=== PATIENT | female | born 1950 | race Caucasian/White ===

== ENCOUNTER → 2019-03-28 | Day surgery (SDC) | payer MEDICARE ==
[2019-03-22 13:00] LABS: BASOPHILS # (AUTO) 0.1 (0.0-0.1); BASOPHILS % 1.3 % (0.0-1.0); EOSINOPHILS # (AUTO) 0.1 (0.0-0.4); EOSINOPHILS % 1.4 % (0.0-6.0); HEMATOCRIT 44.5 % (34.2-44.1); HEMOGLOBIN 14.6 g/dL (12.0-16.0); LYMPHOCYTES # (AUTO) 2.6 (1.0-3.2); LYMPHOCYTES % 33.5 % (18.0-39.1); MEAN CORPUSCULAR HEMOGLOBIN 29.4 pg (28-32); MEAN CORPUSCULAR HGB CONC 32.8 g/dL (31-35); MEAN CORPUSCULAR VOLUME 89.5 fL (81-99); MONOCYTES # (AUTO) 0.6 (0.2-0.8); MONOCYTES % 7.8 % (4.4-11.3); NEUTROPHILS # (AUTO) 4.4 (2.1-6.9); NEUTROPHILS % 55.7 % (38.7-80.0); PLATELET COUNT 274 x10e3/uL (140-360); RED BLOOD COUNT 4.97 x10e6/uL (3.6-5.1)
[~2019-03-28] MED LIST: ASPIR 8181 MG PO; FIBERCON625 MG PO; FISH OIL 1,0001 EAC2 PO; FISH OIL500 M1; KETAMINE HCL INJ 50 MG/ML 10 ML VIAL ONE; MIDAZOLAM HCL 2 MG/2 ML VIAL ONE; MULTIVITAMINS1 EAC7 PO; PRESERVISION T1 EACH PO; PROPOFOL IV EMULSION 10 MG/ML 50 ML VIAL ONE; VIT D PO
--- OUTSIDE RECORDS SUMMARY | 2019-03-28 07:26 | XMS REPORT ---
Author Author [facility] Address Unknown Phone Unavailable Care Team Providers Care Profiler Hand Name Role Phone DAMON BELTRAN Unavailable Unavailable Problems This patient has no known problems. Allergies, Adverse Reactions, Alerts This patient has no known allergies or adverse reactions. Medications This patient has no known medications. Results Test Description Test Time Test Comments Text Results Atomic Results Result Comments SCR MAMM BILATERAL LORI CAD DIGITAL 2018-10-24 13:46:33 - SCR MAMM BILATERAL LORI CAD DIGITALBILATERAL DIGITAL SCREENING MAMMOGRAM 3D/2D WITH CAD: 10/24/2018CLINICAL: Asymptomatic. Digital breast tomosynthesis was performed in addition to routine CC and MLO views. Current mammographic images were evaluated by either a [employer] M-Vu or a [employer] ImageChecker CAD (computer aided detection system). Comparison is made to exams dated 08/13/2016 mammogram, 08/29/2014 mammogram, and 04/12/2013 mammogram - [facility]. The tissue of both breasts is heterogeneously dense. This may lower the sensitivity of mammography. There are benign vascular calcifications in both breasts. No suspicious mass, architectural distortion, malignant type calcification, or lymph node abnormality detected. Breast architecture is stable compared to prior exams.IMPRESSION: BENIGNThere is no mammographic evidence of malignancy. Resume annual screening mammography in one year. Vini Aguirre MD hs/penrad:10/24/2018 13:46:33 Test Carrier: Kristi VIEIRA, [facility] sent: BIRADS 1-2 Normal Mammogram BI-RADS: [address] ABDOMEN/PELVIS [facility] [address] [place], [place] [address] Patient Name: ELIJAH BHATT MR #: [id number] : 1950 Age/Sex: 67/F Req #: [id number] [facility] Physician: Ordered by: DAMON BELTRAN MD Report #: [id number] Location: CT Room/Bed: Procedure: [id number] CT/CT ABDOMEN/PELVIS W Exam Date: 09/28/17 Exam Time: 1054 REPORT STATUS: Signed PROCEDURE: CT ABDOMEN AND PELVIS WITH CONTRAST TECHNIQUE: The abdomen and pelvis were scanned utilizing a multidetector helical scanner from the diaphragm to the lesser trochanter after the IV administration of 100cc of Isovue 370 and the oral administration of 900 cc of Gastroview/water Coronal and sagittal multiplanar reformations were obtained. DLP: 297 mGy-cm COMPARISON: None. INDICATIONS: LOWER ABDOMEN PAIN FINDINGS: LOWER THORAX: Normal. HEPATOBILIARY: Hypoattenuation of the liver relative to the spleen, compatible with hepatic steatosis. Liver is within normal size limits measuring approximately 14.9 cm in length in the mid right clavicular line. Fluid attenuating 2.5 cm cyst in segment 4B adjacent to the falciform ligament (series 2 image 19). A hepatic segment 2/3 0.7 cm hypodensity is too small to characterize but probably a cyst (series 2 image 18). No suspicious focal hepatic lesions. No biliary ductal dilatation. SPLEEN: No splenomegaly. PANCREAS: No focal masses or ductal dilatation. ADRENALS: No adrenal nodules. KIDNEYS/URETERS: No hydronephrosis, stones, or solid mass lesions. PELVIC ORGANS/BLADDER: Oval hyperattenuating 1.4 cm lesion (series 2 image 67) near the left uterine fundus measures approximately 167 HU. PERITONEUM / RETROPERITONEUM: No free air or fluid. LYMPH NODES: No lymphadenopathy. VESSELS: Unremarkable. No abdominal aortic aneurysm. GI TRACT: No distention or wall thickening. Sigmoid colonic diverticula without evidence of diverticulitis. Appendix is normal. Moderate amount of stool in the colon. BONES AND SOFT TISSUES: Soft tissues are unremarkable. No hernia is identified. Mild degenerative changes of the spine. Minimal grade 1 anterolisthesis of L4 and L5 without spondylolysis. IMPRESSION: 1. No acute abnormalities in the abdomen and pelvis. 2. Hepatic steatosis. 3. Diverticulosis. 4. Oval 1.4 cm lesion in the uterus may represent a hyperattenuating fibroid, enhancing polyp, or a vascular structure. This is can be better evaluated with pelvic ultrasound. by: Gary Weeks M.D. on 09/28/2017 at 11:40 Electronically approved by: Gary Weeks M.D. on 09/28/2017 at 11:40 Dictated By: GARY WEEKS MD [id number] Transcribed By: VIRGILIO on 09/28/17 1140 COPY TO: DAMON BELTRAN MD
--- OUTSIDE RECORDS SUMMARY | 2019-03-28 07:26 | XMS REPORT | Clinical Summary ---
Author Author [facility] Address Unknown Phone Unavailable Care Team Providers Care Computer Game Programmer Name Role Phone Austin Medrano MD PCP Allergies No Known Allergies Medications End Date Status Medication Sig Dispensed Refills Start Date Active bromfenac (PROLENSA) 0.07 Apply 1 drop 0 % drops to eye daily. Active CALCIUM CARBONATE Take 1 0 (CALTRATE 600 ORAL) capsule by mouth daily. Active DOCOSAHEXANOIC ACID/EPA Take 1 0 (FISH OIL ORAL) capsule by mouth daily. Active metroNIDAZOLE (FLAGYL) Take 500 mg 0 500 MG tablet by mouth 3 (three) times a day. Active ciprofloxacin (CIPRO) 500 Take 500 mg 0 MG tablet by mouth 2 (two) times a day. Active PROAIR HFA 90 INL 2 PUFFS 3 mcg/actuation inhaler PO Q 6 H PRF 7 WHEEZING Active VIT Take by 0 C/E/ZN/COPPR/LUTEIN/ZEAXA mouth. N (PRESERVISION AREDS 2 ORAL) Active PROLENSA 0.07 % drops 1 drop. DAILY 0 6 Active ciprofloxacin (CIPRO) 500 1 tablet. 0 MG tablet DAILY 6 Active metroNIDAZOLE (FLAGYL) 1 tablet. 0 500 MG tablet DAILY 6 Active ondansetron ODT DISSOLVE 1 T 0 (ZOFRAN-ODT) 4 MG ON TONGUE Q 6 6 disintegrating tablet H PRN NV Active propylene glycol (SYSTANE Apply 1 drop 0 BALANCE OPHT) to eye as needed. 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 L ast Assessment & Plan: MRx updated s/p YAG OU. History of radial keratotomy 12/22/2017 Overview: 8-cut OU, single AK OS L ast Assessment & Plan: 8-cut OU, single AK OS At low risk for open-angle glaucoma in both eyes 12/22/2017 Last Assessment & Plan: Based on C/D increase. Tm 20. Pachy 585/587 IOP 17/18 Pachy 585/587 OCT 82/89 (better than 2016 80/72). HVF non-specific (-2.3/-3.88, last one 2015 -1.94/-2.79). Follow annually for now with testing. Dry eye syndrome 10/01/2016 Primary open angle glaucoma of both eyes, indeterminate stage 07/09/2016 Overview: Pachy 578/574. L ast Assessment & Plan: Pachy 578/574. IOP WNL (18-17, was 12-13 last visit, fluctations more likely due to RK). Testing looks good OCT g 82 OD and 86 OS. Would like to continue 3 month visits. Follow up in 3 months IOP and 6 months for CE and testing. History of radial keratotomy 07/09/2016 Pseudophakia 07/09/2016 Last Assessment & Plan: Almost done with Prolens. Stop after finshied. 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); Trichiasis of left upper eyelid 04/03/2018 Office Visit Ophthalmology after 03/27/2018 Family History Medical History Relation Name Comments Cataracts Other unspecified family Glaucoma Other unspecified family Other Other unspecified walker/wheelchair use family Glaucoma Paternal Grandfather Relation Name Status Comments Other unspecified family Paternal Grandfather Social History Date Tobacco Use Types Packs/Day Years Used Unknown If Ever Smoked Comments: no Alcohol Use Drinks/Week oz/Week Comments No Sex Assigned at Date Recorded Not on file Industry Job Start Date Occupation Not on file Not on file Not on file Travel End Travel History Travel Start No recent travel history available. Last Filed Vital Signs Not on file Plan of Treatment Health Maintenance Due Date Last Done Comments BREAST CANCER SCREENING 2000 COLON CANCER SCREENING 2000 SHINGLES VACCINES (#1) 2000 65+ PNEUMOCOCCAL VACCINE 2015 (1 of 2 - PCV13) PNEUMOCOCCAL 2015 POLYSACCHARIDE VACCINE AGE 65 AND OVER INFLUENZA VACCINE 06/28/2019 Results Not on fileafter 03/27/2018 Insurance Payer Benefit Subscriber ID Type Phone Address Plan / Group MEDICARE MEDICARE xxxxxxxxxx Medicare [place] B AARP AARP xxxxxxxxxx Commercial SUPPLEMENT MEDICARE MEDICARE xxxxxxxxxx Medicare [place] AARP AARP xxxxxxxxxxx Commercial SUPPLEMENT Advance Directives Patient has advance care planning documents on file. For more information, dionte mendes contact: Nabor Soni [address] [facility] [place] [address]
[2019-03-28 09:30] VITALS: BP 132/77
--- NOTE | 2019-03-28 15:09 | Operative Report ---
DATE OF PROCEDURE: 03/28/2019 SURGEON: Bandar Medrano MD PROCEDURE: Esophagogastroduodenoscopy with biopsies and colonoscopy with biopsies. INDICATIONS FOR EGD: Dyspepsia. INDICATIONS FOR COLONOSCOPY: Personal history of colon polyps, lower abdominal pain, history of bright red blood per rectum. MEDICATION: The patient was done under MAC, please see anesthesiologist's note. PROCEDURE IN DETAIL: With the patient in left lateral decubitus position, a flexible fiberoptic Olympus gastroscope was introduced into the esophagus under direct visualization without any difficulty. There was some patchy erythema noted in distal esophagus. The scope was then advanced with ease into the stomach and mucosa overlying the antrum and the body revealed some patchy intense erythema and moderate edema and biopsies were obtained and sent to stain for H pylori. Several minute hyperplastic-appearing polyps were noted in the body of the stomach and some were partially excised with a cold biopsy forceps. The pylorus was of normal contour and shape, it was intubated with ease and the scope was advanced all the way to the second portion of the duodenum. The scope was then withdrawn slowly and biopsies were obtained from the proximal second portion and the duodenal bulb to rule out sprue. The scope was then withdrawn back into the stomach and retroflexed and mucosa overlying the fundus and cardia appeared to be within normal limits. The scope was then straightened out, it was subsequently withdrawn. The patient tolerated procedure well. IMPRESSION: 1. Distal esophagitis. 2. Gastritis, biopsied, biopsies sent to stain for H pylori. 3. Gastric polyps, hyperplastic appearing, some partially excised with the cold biopsy forceps. 4. Rule out sprue. PLAN: Follow up histology. Initiate Protonix 40 mg one p.o. q.a.m. a.c. PROCEDURE IN DETAIL: The patient was then turned around. After adequate lubrication of the anal canal, a flexible fiberoptic Olympus colonoscope was inserted into the rectum with ease and advanced all the way to the cecum. It was then withdrawn slowly and mucosa overlying the cecum appeared to be within normal limits. Scattered diverticular disease was noted pretty much throughout. The mucosa overlying the distal descending, sigmoid, and rectum revealed some patchy mild inflammatory changes and random biopsies were obtained. The scope was then retroflexed into the distal rectum and small internal hemorrhoids were noted, none of which was actively bleeding. The scope was then straightened out, it was subsequently withdrawn. The patient tolerated procedure well. IMPRESSION: 1. Mild patchy left-sided colitis. 2. Diverticulosis. 3. Internal hemorrhoids, none actively bleeding. PLAN: Followup histology. Initiate VSL#3 one p.o. daily. The patient might benefit from a followup colonoscopy in 3 to 5 years. Bandar Medrano MD [facility] /[id number] cc: Harsh Medrano MD
== END | disposition home or self-care (01) ==
LOC: OR 06:49
PROVIDERS: ATTEND Internal Medicine Gastroenterology
DX: K29.70 Gastritis, unspecified, without bleeding (principal); K31.7 Polyp of stomach and duodenum; K51.50 Left sided colitis without complications; K20.8 Other esophagitis; K57.30 Diverticulosis of large intestine without perforation or abscess without bleeding; K64.8 Other hemorrhoids; K62.89 Other specified diseases of anus and rectum; Z88.6 Allergy status to analgesic agent; Z01.810 Encounter for preprocedural cardiovascular examination; Z01.812 Encounter for preprocedural laboratory examination; Z79.82 Long term (current) use of aspirin
CPT/HCPCS: 36415; 43239; 45380; 85025; 88305; 88312; 93005; J2250; J2704; 45378

== ENCOUNTER 2020-11-08 14:07 | Emergency (ER) | payer MEDICARE ==
[~2020-11-08] VITALS: Ht 160 cm; Wt 66.4 kg
[~2020-11-08 14:07] MED LIST changes: -KETAMINE HCL INJ 50 MG/ML 10 ML VIAL ONE; -MIDAZOLAM HCL 2 MG/2 ML VIAL ONE; -PROPOFOL IV EMULSION 10 MG/ML 50 ML VIAL ONE
[2020-11-08] MEDS ORDERED: DIPHTH/TETANUS/ACEL. PERTUSSIS 0.5 ML SYR IM ONE (16:45)
[2020-11-08] MEDS ORDERED: TETANUS/DIPHTHERIA TOX ADULT 0.5 ML SYR ONE (16:54)
[2020-11-08 17:20] VITALS: BP 143/76
== END 2020-11-08 16:57 | disposition home or self-care (01) ==
LOC: FSED 14:58
DX: R07.89 Other chest pain (principal); S80.01XA Contusion of right knee, initial encounter; S50.311A Abrasion of right elbow, initial encounter; S60.512A Abrasion of left hand, initial encounter; W01.0XXA Fall on same level from slipping, tripping and stumbling without subsequent striking against object, initial encounter; Y93.01 Activity, walking, marching and hiking; Y92.481 Parking lot as the place of occurrence of the external cause
CPT/HCPCS: 71046; 90471; 90714; 96372; 99283

== ENCOUNTER → 2022-02-18 | Outpatient (CLI) | payer MEDICARE | LOC: RAD 12:19 | DX: R05.3 Chronic cough (principal) | CPT/HCPCS: 71046 ==

== ENCOUNTER 2022-10-06 14:28 | Emergency (ER) | payer MEDICARE, OTHER ==
[~2022-10-06] VITALS: Ht 160 cm; Wt 67.1 kg
== END 2022-10-06 16:45 | disposition home or self-care (01) ==
LOC: FSED 14:43
DX: S90.32XA Contusion of left foot, initial encounter (principal); Y93.K1 Activity, walking an animal; Y93.89 Activity, other specified; Y92.488 Other paved roadways as the place of occurrence of the external cause; I10 Essential (primary) hypertension
CPT/HCPCS: 99282

== ENCOUNTER → 2022-12-09 | Outpatient (CLI) | payer MEDICARE ==
[~2022-12-09] MED LIST changes: +DIATRIZOATE MEGL/DIATRIZOA SOD 30 ML BTL PO ONE; +IOPAMIDOL 370 MG/ML 100 ML INFUS..BTL INJ ONE
== END ==
LOC: CT 16:05
DX: R10.30 Lower abdominal pain, unspecified (principal)
CPT/HCPCS: 74177; Q9963; Q9967

== ENCOUNTER → 2024-08-29 | Day surgery (SDC) | payer MEDICARE ==
[2024-08-27 11:36] LABS: BASOPHILS # (AUTO) 0.1 (0.0-0.1); BASOPHILS % 2.2 % (0.0-1.0); EOSINOPHILS # (AUTO) 0.1 (0.0-0.4); EOSINOPHILS % 1.8 % (0.0-6.0); HEMATOCRIT 43.5 % (34.2-44.1); HEMOGLOBIN 14.4 g/dL (12.0-16.0); LYMPHOCYTES # (AUTO) 2.5 (1.0-3.2); LYMPHOCYTES % 42.6 % (18.0-39.1); MEAN CORPUSCULAR HEMOGLOBIN 30.3 pg (28-32); MEAN CORPUSCULAR HGB CONC 33.1 g/dL (31-35); MEAN CORPUSCULAR VOLUME 91.4 fL (81-99); MONOCYTES # (AUTO) 0.5 (0.2-0.8); MONOCYTES % 8.1 % (4.4-11.3); NEUTROPHILS # (AUTO) 2.7 (2.1-6.9); PLATELET COUNT 264 x10e3/uL (140-360); RED BLOOD COUNT 4.76 x10e6/uL (3.6-5.1); RED CELL DISTRIBUTION WIDTH 13.9 % (11.7-14.4); WHITE BLOOD COUNT 5.96 x10e3/uL (4.8-10.8)
[~2024-08-29] MED LIST changes: +AMOX TR-K CLV1 EAC2 PO; -DIATRIZOATE MEGL/DIATRIZOA SOD 30 ML BTL PO ONE; +FENTANYL CITRATE/PF 100MCG/2 ML INJ ONE; +HYDROCODON-ACE1 EA11 PO; -IOPAMIDOL 370 MG/ML 100 ML INFUS..BTL INJ ONE; +LOPRESSOR25 MG PO; +MIRALAX17 GM PO; +ONDANSETRON ODT4 MG PO; +PROPOFOL IV EMULSION 50 ML IV ONE
[2024-08-29] MEDS: LACTATED RINGER'S 1,000 ML ONE (07:59)
[2024-08-29 11:39] VITALS: TEMP 97.7
[2024-08-29 12:10] VITALS: BP 129/85; PULSE 60; RESP 16; O2SAT 98
== END | disposition home or self-care (01) ==
LOC: OR 07:46
PROVIDERS: ATTEND Internal Medicine Gastroenterology
DX: Z09 Encounter for follow-up examination after completed treatment for conditions other than malignant neoplasm (principal); Z86.0100 Personal history of colon polyps, unspecified; K57.30 Diverticulosis of large intestine without perforation or abscess without bleeding; K64.8 Other hemorrhoids; K21.9 Gastro-esophageal reflux disease without esophagitis; I10 Essential (primary) hypertension; Z88.6 Allergy status to analgesic agent; Z01.810 Encounter for preprocedural cardiovascular examination; Z01.812 Encounter for preprocedural laboratory examination; Z87.19 Personal history of other diseases of the digestive system
CPT/HCPCS: 36415; 45378; 85025; 93005; J2704; J3010; J7121

== ENCOUNTER → 2024-09-19 | Outpatient (REF) | payer MEDICARE ==
[~2024-09-19] MED LIST changes: -FENTANYL CITRATE/PF 100MCG/2 ML INJ ONE; +IOPAMIDOL 370 MG/ML 100 ML INFUS..BTL INJ ONE; -PROPOFOL IV EMULSION 50 ML IV ONE
[2024-09-19 09:02] LABS: CREATININE, SERUM 0.78 mg/dL (0.57-1.11)
== END ==
LOC: CT 07:24
PROVIDERS: ATTEND Internal Medicine
DX: R10.31 Right lower quadrant pain (principal)
CPT/HCPCS: 36415; 74177; 82565; 84520; Q9967